=== PATIENT | female | born 1975 | race Caucasian/White ===

== ENCOUNTER → 2017-07-18 | Outpatient (CLI) | payer OTHER ==
[~2017-07-18] MED LIST: ALLERGY RELIE15.8 ML BOTH NARES; CLARITIN,ALAVAR10 MG PO; KLONOPIN0.5 M1 PO; MOTRIN800 MG PO; RELPAX20 MG PO
== END | disposition home or self-care (01) ==
LOC: CDC 12:10
DX: Z01.810 Encounter for preprocedural cardiovascular examination (principal); K81.9 Cholecystitis, unspecified
CPT/HCPCS: 93000

== ENCOUNTER 2017-07-24 08:56 | Day surgery (SDC) | payer OTHER ==
[~2017-07-24] VITALS: Ht 154.9 cm; Wt 77.1 kg
[2017-07-24 09:20] VITALS: BP 107/76
[2017-07-24] MEDS ORDERED: ULTRAM50 MG PO (11:31)
[2017-07-24 13:45] VITALS: BP 119/65
[2017-07-24 14:42] VITALS: BP 107/61
== END 2017-07-24 15:20 | disposition home or self-care (01) ==
LOC: SDC 08:56
PROC: 0FT44ZZ Resection of Gallbladder, Percutaneous Endoscopic Approach (ICD-10-PCS; principal; 2017-07-24)
DX: K80.10 Calculus of gallbladder with chronic cholecystitis without obstruction (principal); K21.9 Gastro-esophageal reflux disease without esophagitis; Z82.49 Family history of ischemic heart disease and other diseases of the circulatory system; Z83.3 Family history of diabetes mellitus; Z83.49 Family history of other endocrine, nutritional and metabolic diseases
CPT/HCPCS: 88304; J0131; J0690; J1100; J1170; J1885; J2250; J2405; J2710; J2765; J2795; J3010; J3475; J7643; S0020